=== PATIENT | male | born 1960 | race Caucasian/White ===

== ENCOUNTER 2020-07-21 09:35 | Outpatient (CLI) | payer OTHER | END 2020-07-21 09:38 | disposition home or self-care (01) | LOC: SONOGRAMA 09:35 | PROVIDERS: ATTEND Pathology Anatomic Pathology & Clinical Pathology | DX: E07.89 Other specified disorders of thyroid (principal); E05.20 Thyrotoxicosis with toxic multinodular goiter without thyrotoxic crisis or storm ==

== ENCOUNTER 2021-09-21 10:52 | Outpatient (CLI) | payer OTHER | END 2021-09-21 14:26 | disposition home or self-care (01) | LOC: SONOGRAMA 10:52 | PROVIDERS: ATTEND Pathology Anatomic Pathology & Clinical Pathology | DX: E04.2 Nontoxic multinodular goiter (principal) ==